=== PATIENT | female | born 1985 | race Caucasian/White ===

== ENCOUNTER 2023-11-30 10:20 | Emergency (ER) | payer OTHER ==
[~2023-11-30] VITALS: Ht 160 cm; Wt 93.9 kg
[~2023-11-30 10:20] MED LIST: ACET-2247 PO; DIPH25CA85 PO; MONT-47 PO; PREN1TAB80 PO; albuterol AD
[2023-11-30 11:06] VITALS: BP 130/88; PULSE 84; RESP 18; O2SAT 100
[2023-11-30 11:26] LABS: APPEARANCE,URINE CLEAR (CLEAR); BILIRUBIN,URINE NEGATIVE (NEGATIVE); COLOR,URINE YELLOW (YELLOW); GLUCOSE, URINE (UA) NEGATIVE (NEGATIVE); KETONES,URINE NEGATIVE (NEGATIVE); LEUKOCYTE ESTERASE ,URINE NEGATIVE Leu/uL (NEGATIVE); NITRATE,URINE NEGATIVE (NEGATIVE); OCCULT BLOOD,URINE NEGATIVE (NEGATIVE); PH,URINE 7.5 (5.0-8.0); PROTEIN,URINE 30 mg/dL (NEGATIVE); UROBILINOGEN,URINE 0.2 mg/dL (0.2-1.0)
[2023-11-30 11:27] LABS: HEMATOCRIT 34.9 % (36-48); MEAN CORPUSCULAR HEMOGLOBIN 23.5 pg (27.0-33.0); MEAN CORPUSCULAR HGB CONC 31.8 g/dL (32.0-36.0); MEAN CORPUSCULAR VOLUME 73.9 fL (79-99); PLATELET COUNT (AUTO) 209 K/uL (130-400); RED BLOOD CELL COUNT(AUTO) 4.72 MIL/uL (4.00-5.50); RED CELL DISTRIBUTION WIDTH 16.5 % (11.0-15.5); WHITE BLOOD COUNT (AUTO) 6.9 K/uL (4.8-10.8)
[2023-11-30 11:27] LABS: ADD UA MICROSCOPIC YES
[2023-11-30 11:47] LABS: CREATININE 0.7 mg/dL (0.5-1.5); POTASSIUM 3.5 mmol/L (3.5-5.1)
[2023-11-30 12:03] LABS: HCG,QUALITATIVE URINE NEGATIVE (NEGATIVE)
[2023-11-30 12:06] LABS: BACTERIA,URINE RARE /HPF (None Seen); MUCUS,URINE FEW LPF (None Seen); SQUAMOUS EPITHELIAL CELL,UR MOD /HPF (0-2)
[2023-11-30 12:08] LABS: AMPHET/METH SCREEN,URINE NEGATIVE (NEGATIVE); BARBITURATE SCREEN, URINE NEGATIVE (NEGATIVE); BENZODIAZEPINES SCREEN,URINE NEGATIVE (NEGATIVE); CANNABINOID SCREEN,URINE NEGATIVE (NEGATIVE); COCAINE SCREEN,URINE NEGATIVE (NEGATIVE); OPIATE SCREEN,URINE NEGATIVE (NEGATIVE); PHENCYCLIDINE SCREEN,URINE NEGATIVE (NEGATIVE)
[2023-11-30 14:34] LABS: % IRON SATURATION 3.9 % (22-44)
[2023-11-30] MEDS ORDERED: BUSP15 PO (14:44)
[2023-11-30] MEDS ORDERED: BUSP10TA3 PO (15:20)
== END 2023-11-30 15:33 | disposition home or self-care (01) ==
LOC: EDH 10:20
DX: F41.9 Anxiety disorder, unspecified (principal); F32.A Depression, unspecified; D50.9 Iron deficiency anemia, unspecified; Z79.899 Other long term (current) drug therapy; Z90.49 Acquired absence of other specified parts of digestive tract
CPT/HCPCS: 36415; 71045; 80048; 80305; 81001; 81025; 83540; 83550; 84484; 85027; 93005

== ENCOUNTER 2024-09-05 14:42 | Emergency (ER) | payer SELFPAY ==
[~2024-09-05 14:42] MED LIST changes: +BUSP10TA3 PO
== END 2024-09-05 15:59 | disposition left against medical advice (07) ==
LOC: EDH 14:42
DX: M79.604 Pain in right leg (principal); Z53.21 Procedure and treatment not carried out due to patient leaving prior to being seen by health care provider